=== PATIENT | male | born 1985 | race Hispanic/Latino ===

== ENCOUNTER 2018-10-10 21:01 | Emergency (ER) | payer SELFPAY ==
[2018-10-10 22:44] LABS: BASOPHILS % (AUTO) 0.9 % (0.0-5.0); HEMATOCRIT 45.9 % (42-54); LYMPHOCYTES % (AUTO) 44.6 % (21.0-51.0); MEAN CORPUSCULAR HEMOGLOBIN 30.6 pg (27.0-33.0); MEAN CORPUSCULAR HGB CONC 34.4 g/dL (32.0-36.0); MEAN CORPUSCULAR VOLUME 89.2 fL (79-99); MONOCYTES % (AUTO) 9.5 % (3.0-13.0); NUCLEATED RED BLOOD CELLS 0.1 % (0.0-0.19); PLATELET COUNT (AUTO) 187 K/uL (130-400); RED BLOOD CELL COUNT(AUTO) 5.15 MIL/uL (4.50-6.20); RED CELL DISTRIBUTION WIDTH 13.8 % (11.0-15.5)
[2018-10-10 22:57] LABS: CREATININE 0.9 mg/dL (0.5-1.5); POTASSIUM 3.9 mmol/L (3.5-5.1)
[2018-10-10 23:04] LABS: ALBUMIN 3.9 g/dL (3.5-5.0); BILIRUBIN,TOTAL 0.3 mg/dL (0.2-1.0); TOTAL PROTEIN, SERUM 7.8 g/dL (6.0-8.3)
== END 2018-10-10 23:32 | disposition home or self-care (01) ==
LOC: EDH 21:01
DX: J20.9 Acute bronchitis, unspecified (principal)
CPT/HCPCS: 36415; 71046; 80053; 85025

== ENCOUNTER 2019-04-07 11:29 | Emergency (ER) | payer OTHER ==
[2019-04-07] MEDS ORDERED: DIAZEPAM 5 MG TABLET ONE (12:36)
[2019-04-07] MEDS ORDERED: KETOROLAC TROMETHAMINE 60 MG/2 ML VIAL ONE (12:36)
== END 2019-04-07 14:13 | disposition home or self-care (01) ==
LOC: EDH 11:29
DX: M54.6 Pain in thoracic spine (principal); M62.830 Muscle spasm of back
CPT/HCPCS: 96372; 99283; J1885

== ENCOUNTER 2020-02-11 23:24 | Inpatient (IN) | payer SELFPAY ==
[~2020-02-11] VITALS: Ht 180.3 cm; Wt 97.5 kg
[2020-02-11] MEDS ORDERED: NITROGLYCERIN 1GM/1 INCH PACKET TD ONE (23:31)
[2020-02-11] MEDS ORDERED: ASPIRIN 325 MG TABLET ONE (23:31)
[2020-02-11 23:38] LABS: BASOPHILS % (AUTO) 0.8 % (0.0-5.0); EOSINOPHILS % (AUTO) 0.6 % (0.0-8.0); HEMATOCRIT 44.8 % (42-54); LYMPHOCYTES % (AUTO) 31.5 % (21.0-51.0); MEAN CORPUSCULAR HEMOGLOBIN 30.2 pg (27.0-33.0); MEAN CORPUSCULAR HGB CONC 34.4 g/dL (32.0-36.0); MEAN CORPUSCULAR VOLUME 87.8 fL (79-99); MONOCYTES % (AUTO) 8.8 % (3.0-13.0); NEUTROPHILS % (AUTO) 58.1 % (40.0-77.0); PLATELET COUNT (AUTO) 263 K/uL (130-400); RED CELL DISTRIBUTION WIDTH 13.1 % (11.0-15.5); WHITE BLOOD COUNT (AUTO) 12.2 K/uL (4.8-10.8)
[2020-02-11 23:47] LABS: CREATININE 1.3 mg/dL (0.5-1.5); POTASSIUM 4.1 mmol/L (3.5-5.1)
[2020-02-11 23:52] LABS: BILIRUBIN,TOTAL 0.3 mg/dL (0.2-1.0); TOTAL PROTEIN, SERUM 7.8 g/dL (6.0-8.3)
[2020-02-11 23:58] LABS: APPEARANCE,URINE Clear (CLEAR); BILIRUBIN,URINE Negative (NEGATIVE); COLOR,URINE Yellow (YELLOW); GLUCOSE, URINE (UA) Negative (NEGATIVE); KETONES,URINE Trace mg/dL (NEGATIVE); LEUKOCYTE ESTERASE ,URINE Small (NEGATIVE); NITRATE,URINE Negative (NEGATIVE); OCCULT BLOOD,URINE Negative (NEGATIVE); PROTEIN,URINE Negative (NEGATIVE)
[2020-02-12 00:05] LABS: BACTERIA,URINE None Seen /HPF (None Seen); MUCUS,URINE Few LPF (None Seen); RBC,URINE 0-1 /HPF (0-1); SQUAMOUS EPITHELIAL CELL,UR Rare /HPF (0-2)
[2020-02-12 00:06] LABS: B-TYPE NATRIURETIC PEPTIDE 15 pg/mL (0-100)
[2020-02-12 00:07] LABS: AMPHET/METH SCREEN,URINE NEGATIVE (NEGATIVE); BARBITURATE SCREEN, URINE NEGATIVE (NEGATIVE); BENZODIAZEPINES SCREEN,URINE NEGATIVE (NEGATIVE); CANNABINOID SCREEN,URINE NEGATIVE (NEGATIVE); COCAINE SCREEN,URINE NEGATIVE (NEGATIVE); OPIATE SCREEN,URINE NEGATIVE (NEGATIVE); PHENCYCLIDINE SCREEN,URINE NEGATIVE (NEGATIVE)
[2020-02-12] MEDS ORDERED: ONDANSETRON HCL 4 MG/2 ML VIAL IV PRN (02:45)
[2020-02-12 04:41] LABS: HEMOGLOBIN A1C 5.5 % (4.0-6.0)
[2020-02-12 04:55] LABS: THYROID STIMULATING HORMONE 3.65 uIU/mL (0.36-3.74)
[2020-02-12] MEDS ORDERED: GADODIAMIDE 10 MMOL/20 ML VIAL IV ONE (08:52)
[2020-02-12] MEDS ORDERED: AMLODIPINE BESYLATE 5 MG TAB PO SCH (09:00)
[2020-02-12] MEDS: ENOXAPARIN SODIUM 40 MG/0.4 ML SYRINGE SQ SCH (09:00)
[2020-02-12] MEDS ORDERED: ENOXAPARIN SODIUM 40 MG/0.4 ML SYRINGE SQ ONE (09:22)
--- NOTE | 2020-02-12 12:35 | NUR ---
DC Plan Prior to admission, patient independently performed ADLs. Now admitted with subacute ischemic stroke with LLE drift on tele-neuro assessment. Patient c/o weakness to the left side. Lives . Denies an HH, DME, or provider services. DCP is to home with . CD Addendum: 02/13/20 at 1015 by AXEL MINAYA CM Amended: Links added.
[2020-02-13] MEDS ORDERED: ENOXAPARIN SODIUM 40 MG/0.4 ML SYRINGE SQ ONE (08:18)
[2020-02-13] MEDS: LISINOPRIL 10 MG TABLET PO SCH ×2 (09:00→16:13)
[2020-02-13] MEDS: ENOXAPARIN SODIUM 40 MG/0.4 ML SYRINGE SQ SCH (09:00)
[2020-02-13 09:36] LABS: BASOPHILS % (AUTO) 0.9 % (0.0-5.0); EOSINOPHILS % (AUTO) 0.8 % (0.0-8.0); HEMATOCRIT 46.7 % (42-54); LYMPHOCYTES % (AUTO) 28.7 % (21.0-51.0); MEAN CORPUSCULAR HEMOGLOBIN 29.5 pg (27.0-33.0); MEAN CORPUSCULAR HGB CONC 33.4 g/dL (32.0-36.0); MEAN CORPUSCULAR VOLUME 88.4 fL (79-99); MONOCYTES % (AUTO) 9.5 % (3.0-13.0); PLATELET COUNT (AUTO) 251 K/uL (130-400); RED BLOOD CELL COUNT(AUTO) 5.28 MIL/uL (4.50-6.20); RED CELL DISTRIBUTION WIDTH 13.1 % (11.0-15.5); WHITE BLOOD COUNT (AUTO) 8.9 K/uL (4.8-10.8)
[2020-02-13 09:51] LABS: CREATININE 1.1 mg/dL (0.5-1.5)
[2020-02-13 12:00] VITALS: BP 127/71
[2020-02-13] MEDS ORDERED: IOHEXOL-350 75 ML VIAL IV ONE (12:50)
--- NOTE | 2020-02-13 14:00 | NUR ---
REPORT RECEIVED, CARE CONTINUED. ASSESSMENT DONE ,WEAKNESS NOTED TO LT ARM AND LEG BUT IS MILD AND ABLE TO GET AROUND WITH NO PROBLEM. NS AT STARTED AT 50 ML/HR.
[2020-02-13 16:00] VITALS: BP 119/72
[2020-02-13] MEDS: ASPIRIN 81MG TAB.CHEW PO SCH (16:13)
[2020-02-13] MEDS: SODIUM CHLORIDE 0.9% 1000ML 1,000 ML IV SCH (16:14)
[2020-02-13] MEDS: ATORVASTATIN CALCIUM 20 MG TABLET PO SCH (21:58)
[2020-02-13 22:03] VITALS: BP 131/76
[2020-02-14 00:54] VITALS: BP 134/83
[2020-02-14 04:31] VITALS: BP 101/53
[2020-02-14] MEDS: SODIUM CHLORIDE 0.9% 1000ML 1,000 ML IV SCH (07:37)
[2020-02-14] MEDS: LISINOPRIL 10 MG TABLET PO SCH (07:37)
[2020-02-14] MEDS: ASPIRIN 81MG TAB.CHEW PO SCH (07:37)
[2020-02-14] MEDS: ENOXAPARIN SODIUM 40 MG/0.4 ML SYRINGE SQ SCH (07:38)
[2020-02-14 08:00] VITALS: BP 131/79
[2020-02-14 11:28] VITALS: BP 110/66
--- NOTE | 2020-02-14 12:48 | NUR ---
Pt W LUE AND LLE WEAKNESS. DENIES PAIN. NUMBNESS REPORTED HOWEVER SENSATION INTACT TO LUE LLE. NO FACIAL WEAKNESS NOTED, DENIES SWALLOWING ISSUES. ROM FULL BUT SLOW. LUE 3+ GROSSLY LLE 2 NO RESISTANCE, NO FOOT DROP NOTED, BUT GAIT UNSTAEDY, KNEE DARY. WILL NEED CANE OR WALKER AT THIS TIME. WALKER GIVEN INROOM. PT NON COMPLIANT WITH CALLING FOR HELP AND HAS BEEN AMBULATING IN ROOM. INSTRUCTED TO CALL FOR HELP, LEFT WALKER, INSTRUCTED IN HEP. Addendum: 02/14/20 at 1250 by KAVITA BURNS PT PT Amended: Links added.
[2020-02-14 16:00] VITALS: BP 118/71
[2020-02-14] MEDS: ATORVASTATIN CALCIUM 20 MG TABLET PO SCH (21:11)
[2020-02-14 21:22] VITALS: BP 120/71
[2020-02-15 00:08] VITALS: BP 142/74
[2020-02-15 04:10] VITALS: BP 132/73
[2020-02-15] MEDS: LISINOPRIL 10 MG TABLET PO SCH (07:18)
[2020-02-15] MEDS: ASPIRIN 81MG TAB.CHEW PO SCH (07:18)
[2020-02-15] MEDS: ENOXAPARIN SODIUM 40 MG/0.4 ML SYRINGE SQ SCH (07:19)
[2020-02-15 08:00] VITALS: BP 113/74
--- NOTE | 2020-02-15 08:00 | NUR ---
ASSESSMENT PT IS AAOX3 DENIES CP DENIES SOB DENIES NV. NOTED LEFT UPPER EXT WEAKNESS WHEN COMPARED TO RIGHT UPPER EXT. BILATERAL LOWER EXT ARE STRONG. NO SLURRED SPEECH NO FACIAL DROOP NOTED, PT DENIES HEADACHES AND DENIES SEEING VISUAL DISTURBANCES. SITTING UPRIGHT IN BED, CALL LIGHT WITHIN REACH. TOLERATED BREAKFAST.
[2020-02-15 12:00] VITALS: BP 118/68
--- NOTE | 2020-02-15 12:38 | NUR ---
UP WITH PHYSICAL THERAPY
[2020-02-15 15:40] VITALS: BP 125/75
[2020-02-15] MEDS ORDERED: FAMOTIDINE 20MG TAB 20 MG TAB ONE (19:11)
[2020-02-15] MEDS: ATORVASTATIN CALCIUM 20 MG TABLET PO SCH (20:03)
[2020-02-15] MEDS: FAMOTIDINE 20MG TAB 20 MG TAB PO SCH (20:03)
[2020-02-15] MEDS: ACETAMINOPHEN 325 MG TAB PO PRN (20:09)
[2020-02-15 21:03] VITALS: BP 122/69
[2020-02-16] VITALS (8 sets, daily range): BP systolic 117–132; BP diastolic 58–85
[2020-02-16 05:53] LABS: BASOPHILS % (AUTO) 0.9 % (0.0-5.0); EOSINOPHILS % (AUTO) 1.5 % (0.0-8.0); HEMATOCRIT 47.9 % (42-54); LYMPHOCYTES % (AUTO) 35.5 % (21.0-51.0); MEAN CORPUSCULAR HEMOGLOBIN 30.2 pg (27.0-33.0); MEAN CORPUSCULAR HGB CONC 33.8 g/dL (32.0-36.0); MEAN CORPUSCULAR VOLUME 89.2 fL (79-99); NEUTROPHILS % (AUTO) 51.8 % (40.0-77.0); PLATELET COUNT (AUTO) 275 K/uL (130-400); RED BLOOD CELL COUNT(AUTO) 5.37 MIL/uL (4.50-6.20); RED CELL DISTRIBUTION WIDTH 12.8 % (11.0-15.5); WHITE BLOOD COUNT (AUTO) 7.9 K/uL (4.8-10.8)
[2020-02-16 06:27] LABS: CREATININE 1.1 mg/dL (0.5-1.5)
[2020-02-16] MEDS: ENOXAPARIN SODIUM 40 MG/0.4 ML SYRINGE SQ SCH (08:27)
[2020-02-16] MEDS: LISINOPRIL 10 MG TABLET PO SCH (08:27)
[2020-02-16] MEDS: FAMOTIDINE 20MG TAB 20 MG TAB PO SCH ×2 (08:27→20:09)
[2020-02-16] MEDS: ASPIRIN 81MG TAB.CHEW PO SCH (08:27)
[2020-02-16] MEDS: ACETAMINOPHEN 325 MG TAB PO PRN ×2 (13:49→20:10)
--- NOTE | 2020-02-16 17:17 | NUR ---
TRANSFER REPORT GIVEN TO JOO BARBER. PT TO BE TRANSFERRED TO RM 312.
--- NOTE | 2020-02-16 17:25 | NUR ---
TRANSFER PT TRANSFERRED TO 312 VIA WC BY ASHLEY HAJI.
--- NOTE | 2020-02-16 17:35 | NUR ---
PATIENT TRANSFERRED FROM ROOM 417. PATIENT AT THIS TIME AAOX4, DENIES ANY PAIN. REPORTS LEFT SIDE WEAKNESS CONTINUES. NO OTHER COMPLAINTS. WILL CONTINUE TO MONITOR
[2020-02-16] MEDS: ATORVASTATIN CALCIUM 20 MG TABLET PO SCH (20:10)
[2020-02-16] MEDS: GABAPENTIN 100 MG CAPSULE PO SCH (21:10)
[2020-02-17 03:49] VITALS: BP 114/72
[2020-02-17 04:00] LABS: EOSINOPHILS % (AUTO) 1.2 % (0.0-8.0); HEMATOCRIT 48.5 % (42-54); LYMPHOCYTES % (AUTO) 35.6 % (21.0-51.0); MEAN CORPUSCULAR HEMOGLOBIN 29.7 pg (27.0-33.0); MEAN CORPUSCULAR VOLUME 87.4 fL (79-99); MONOCYTES % (AUTO) 9.4 % (3.0-13.0); NEUTROPHILS % (AUTO) 52.7 % (40.0-77.0); PLATELET COUNT (AUTO) 285 K/uL (130-400); RED BLOOD CELL COUNT(AUTO) 5.55 MIL/uL (4.50-6.20); RED CELL DISTRIBUTION WIDTH 12.6 % (11.0-15.5); WHITE BLOOD COUNT (AUTO) 9.1 K/uL (4.8-10.8)
[2020-02-17 04:26] LABS: BILIRUBIN,TOTAL 0.5 mg/dL (0.2-1.0); POTASSIUM 3.8 mmol/L (3.5-5.1); TOTAL PROTEIN, SERUM 8.2 g/dL (6.0-8.3)
[2020-02-17] MEDS: GABAPENTIN 100 MG CAPSULE PO SCH ×3 (05:45→21:00)
[2020-02-17 07:51] VITALS: BP 120/67
[2020-02-17] MEDS: FAMOTIDINE 20MG TAB 20 MG TAB PO SCH ×2 (10:11→21:00)
[2020-02-17] MEDS: ASPIRIN 81MG TAB.CHEW PO SCH (10:11)
[2020-02-17] MEDS: LISINOPRIL 10 MG TABLET PO SCH (10:12)
[2020-02-17] MEDS: ENOXAPARIN SODIUM 40 MG/0.4 ML SYRINGE SQ SCH (10:13)
[2020-02-17 11:35] VITALS: BP 126/74
[2020-02-17 16:51] VITALS: BP 125/73
[2020-02-17 20:30] VITALS: BP 127/72
[2020-02-17] MEDS: ATORVASTATIN CALCIUM 20 MG TABLET PO SCH (21:00)
[2020-02-18 00:01] VITALS: BP 134/78
[2020-02-18 03:53] VITALS: BP 126/80
[2020-02-18] MEDS: GABAPENTIN 100 MG CAPSULE PO SCH ×2 (06:28→13:22)
[2020-02-18 08:00] VITALS: BP 130/73
[2020-02-18] MEDS: ENOXAPARIN SODIUM 40 MG/0.4 ML SYRINGE SQ SCH (09:00)
[2020-02-18] MEDS: ASPIRIN 81MG TAB.CHEW PO SCH (09:56)
[2020-02-18] MEDS: FAMOTIDINE 20MG TAB 20 MG TAB PO SCH (09:56)
[2020-02-18] MEDS: LISINOPRIL 10 MG TABLET PO SCH (09:56)
[2020-02-18 12:00] VITALS: BP 125/90
[2020-02-18] MEDS ORDERED: ACET-2247 PO (15:50)
[2020-02-18] MEDS ORDERED: GABA100C PO (15:56)
[2020-02-18] MEDS ORDERED: FAMO20TA8 PO (15:56)
[2020-02-18] MEDS ORDERED: ATOR20TA65 PO (15:56)
[2020-02-18] MEDS ORDERED: ASPI-1005 PO (15:56)
[2020-02-18] MEDS ORDERED: LISI10TA7 PO (15:57)
== END 2020-02-18 18:00 | disposition home or self-care (01) | DRG 65 ==
LOC: EDH 23:24 → EDHIP 23:25 → OBSVTOIN 23:25 → 4DH 02-13 11:57 → 3BH 02-16 17:30
PROVIDERS: ADMIT Internal Medicine; ATTEND Internal Medicine
DX: I63.9 Cerebral infarction, unspecified (principal); G81.94 Hemiplegia, unspecified affecting left nondominant side; I10 Essential (primary) hypertension; E78.00 Pure hypercholesterolemia, unspecified; E78.1 Pure hyperglyceridemia; E78.5 Hyperlipidemia, unspecified; F17.210 Nicotine dependence, cigarettes, uncomplicated; I73.9 Peripheral vascular disease, unspecified; Z82.49 Family history of ischemic heart disease and other diseases of the circulatory system
CPT/HCPCS: 36415; 70450; 70496; 70498; 70553; 71045; 72125; 73030; 80048; 80053; 80061; 80305; 81001; 82550; 82948; 83036; 83690; 83880; 84443; 84484; 85025; 93005; 93306; 93356; 93880; 97039; A9579; G0378; J1650; Q9967

== ENCOUNTER 2020-02-29 19:52 | Inpatient (IN) | payer SELFPAY ==
[~2020-02-29] VITALS: Ht 180.3 cm; Wt 97.5 kg
[~2020-02-29 19:52] MED LIST: ASPI-1005 PO; ATOR20TA65 PO; FAMO20TA8 PO; GABA100C PO; LISI10TA7 PO
[2020-02-29] MEDS ORDERED: NITROGLYCERIN 0.4 MG SL TAB SL ONE (20:03)
[2020-02-29 20:26] LABS: BASOPHILS % (AUTO) 0.8 % (0.0-5.0); EOSINOPHILS % (AUTO) 0.7 % (0.0-8.0); HEMATOCRIT 49.2 % (42-54); LYMPHOCYTES % (AUTO) 39.8 % (21.0-51.0); MEAN CORPUSCULAR HEMOGLOBIN 30.1 pg (27.0-33.0); MEAN CORPUSCULAR HGB CONC 34.1 g/dL (32.0-36.0); MEAN CORPUSCULAR VOLUME 88.2 fL (79-99); MONOCYTES % (AUTO) 9.6 % (3.0-13.0); PLATELET COUNT (AUTO) 324 K/uL (130-400); RED BLOOD CELL COUNT(AUTO) 5.58 MIL/uL (4.50-6.20); RED CELL DISTRIBUTION WIDTH 12.3 % (11.0-15.5); WHITE BLOOD COUNT (AUTO) 11.8 K/uL (4.8-10.8)
[2020-02-29 20:35] LABS: CREATININE 1.2 mg/dL (0.5-1.5); POTASSIUM 3.9 mmol/L (3.5-5.1)
[2020-02-29 20:40] LABS: ALBUMIN 4.6 g/dL (3.5-5.0); BILIRUBIN,TOTAL 0.3 mg/dL (0.2-1.0); TOTAL PROTEIN, SERUM 8.7 g/dL (6.0-8.3)
[2020-02-29 20:55] LABS: INR 0.88 (0.85-1.15); PROTHROMBIN TIME 9.6 SEC (9.6-11.6)
[2020-02-29] MEDS ORDERED: ACETAMINOPHEN 325 MG TAB PO PRN (21:45)
[2020-02-29] MEDS ORDERED: MORPHINE SULFATE 2 MG/ML 1ML SYG IVP PRN (21:45)
[2020-02-29] MEDS ORDERED: ONDANSETRON ODT 4 MG TAB PO PRN (21:45)
[2020-03-01 05:10] LABS: BASOPHILS % (AUTO) 0.9 % (0.0-5.0); EOSINOPHILS % (AUTO) 1.2 % (0.0-8.0); HEMATOCRIT 47.9 % (42-54); LYMPHOCYTES % (AUTO) 47.1 % (21.0-51.0); MEAN CORPUSCULAR HEMOGLOBIN 30.3 pg (27.0-33.0); MEAN CORPUSCULAR HGB CONC 34.2 g/dL (32.0-36.0); MEAN CORPUSCULAR VOLUME 88.5 fL (79-99); MONOCYTES % (AUTO) 8.7 % (3.0-13.0); NEUTROPHILS % (AUTO) 41.9 % (40.0-77.0); PLATELET COUNT (AUTO) 299 K/uL (130-400); RED BLOOD CELL COUNT(AUTO) 5.41 MIL/uL (4.50-6.20); RED CELL DISTRIBUTION WIDTH 12.6 % (11.0-15.5)
[2020-03-01 05:43] LABS: CARBON DIOXIDE 27 mmol/L (21-32); CHLORIDE 102 mmol/L (101-111); CHOLESTEROL 162 mg/dL (<200); CREATINE KINASE, TOTAL 65 U/L (21-232); CREATININE 1.1 mg/dL (0.5-1.5); GLOMERULAR FILTR. RATE CALC 82 mL/min (>60); GLUCOSE,RANDOM 88 mg/dL (70-105); HDL CHOLESTEROL 35 mg/dL (29-71); LDL DIRECT 101 mg/dL (0-99); MYOGLOBIN 33 ng/mL (10-92); POTASSIUM 3.8 mmol/L (3.5-5.1); SODIUM SERUM 139 mmol/L (136-145); TRIGLYCERIDES 143 mg/dL (30-200); TROPONIN I < 0.04 ng/mL (0.00-0.06); UREA NITROGEN, BLOOD 18 mg/dL (7-18)
[2020-03-01 06:11] LABS: HEMOGLOBIN A1C 5.5 % (4.0-6.0)
[2020-03-01] MEDS: ASPIRIN 81 MG EC TAB PO SCH (09:00)
[2020-03-01] MEDS: ENOXAPARIN SODIUM 40 MG/0.4 ML SYRINGE SQ SCH (09:00)
[2020-03-01] MEDS ORDERED: ENOXAPARIN SODIUM 40 MG/0.4 ML SYRINGE SQ ONE (09:42)
[2020-03-01] MEDS ORDERED: ASPIRIN 81MG TAB.CHEW ONE (09:42)
--- NOTE | 2020-03-01 14:15 | NUR ---
RUSTAM NOTE/IA UNABLE TO MEET WITH PATIENT IN ROOM, NEXT OF KIN CALLED, KLARISSA ARELI. PER SPOUSE, PATIENT LIVES WITH HER AND CHILDREN, IS SEMI INDEPENDENT, HAS USE OF WALKER, NO PROVIDER OR HOME HEALTH AND FEELS SAFE FOR PATIENT TO RETURN HOME ONCE DISCHARGED FROM HOSPITAL. Addendum: 03/01/20 at 1418 by TRENT OVIEDO RN CM Amended: Links added.
[2020-03-01 17:55] VITALS: BP 122/90
--- NOTE | 2020-03-01 21:00 | NUR ---
FAMILY Pt states his next of kin is his mom Luci Gandara.not his .He said they're .
[2020-03-01 21:10] VITALS: BP 124/76
[2020-03-02 00:29] VITALS: BP 130/86
[2020-03-02 04:21] VITALS: BP 125/83
[2020-03-02] MEDS: ASPIRIN 81 MG EC TAB PO SCH (07:27)
[2020-03-02] MEDS: ENOXAPARIN SODIUM 40 MG/0.4 ML SYRINGE SQ SCH (07:27)
--- NOTE | 2020-03-02 08:00 | NUR ---
PT AAO X 3 REVIEW PLAN OF CARE. DENIES ANY PAIN .WEAKNESS TO HIS LT SIDE NOTED . RIGHT SIDE ,GOOD, NOTED NO DEFICIT TO HIS FACE, DENIES ANY HEADACHE . CALL LIGHT IN REACH..
[2020-03-02 08:41] VITALS: BP 111/82
[2020-03-02 11:44] VITALS: BP 119/86
--- NOTE | 2020-03-02 13:20 | NUR ---
DISCHARGE HOME, SUMMARY WAS REVIEW. DENIES ANY PAIN. OR FAINTING. . PT TO FOLLOW WITH ANDREIA TURCIOS DR. FOR CONT CARE. SL TO HIS RT HAND WAS DC ,WITH NO HEMATOMA NOTED.
== END 2020-03-02 14:20 | disposition home or self-care (01) | DRG 313 ==
LOC: EDH 19:52 → EDHIP 19:53 → 3DH 03-01 17:57
PROVIDERS: ADMIT Internal Medicine Infectious Disease; ATTEND Internal Medicine Infectious Disease
DX: R07.89 Other chest pain (principal); I10 Essential (primary) hypertension; E66.9 Obesity, unspecified; Z86.73 Personal history of transient ischemic attack (TIA), and cerebral infarction without residual deficits; Z91.19 Patient's noncompliance with other medical treatment and regimen; Z68.30 Body mass index [BMI] 30.0-30.9, adult
CPT/HCPCS: 36415; 70450; 71045; 80048; 80053; 80061; 82550; 83036; 83735; 83874; 84484; 85025; 85610; 85730; 93005; G0378; J1650

== ENCOUNTER 2020-10-27 18:22 | Emergency (ER) | payer OTHER ==
[~2020-10-27 18:22] MED LIST changes: -FAMO20TA8 PO; +LISI10TA24 PO; -LISI10TA7 PO
[2020-10-27 18:51] LABS: BASOPHILS % (AUTO) 0.2 % (0.0-5.0); EOSINOPHILS % (AUTO) 1.8 % (0.0-8.0); HEMATOCRIT 46.1 % (42-54); LYMPHOCYTES % (AUTO) 36.1 % (21.0-51.0); MEAN CORPUSCULAR HEMOGLOBIN 29.9 pg (27.0-33.0); MEAN CORPUSCULAR HGB CONC 34.3 g/dL (32.0-36.0); MEAN CORPUSCULAR VOLUME 87.3 fL (79-99); MONOCYTES % (AUTO) 10.4 % (3.0-13.0); NEUTROPHILS % (AUTO) 51.3 % (40.0-77.0); PLATELET COUNT (AUTO) 140 K/uL (130-400); RED BLOOD CELL COUNT(AUTO) 5.28 MIL/uL (4.50-6.20); RED CELL DISTRIBUTION WIDTH 13.1 % (11.0-15.5); WHITE BLOOD COUNT (AUTO) 6.3 K/uL (4.8-10.8)
[2020-10-27 19:09] LABS: CREATININE 1.2 mg/dL (0.5-1.5); POTASSIUM 3.2 mmol/L (3.5-5.1)
[2020-10-27 19:14] LABS: ALBUMIN 3.6 g/dL (3.5-5.0); BILIRUBIN,TOTAL 0.3 mg/dL (0.2-1.0); TOTAL PROTEIN, SERUM 7.4 g/dL (6.0-8.3)
[2020-10-27] MEDS ORDERED: POTASSIUM CHLORIDE 20 MEQ ERTAB PO ONE (20:52)
[2020-10-27] MEDS ORDERED: DEXAMETHASONE SOD PHOSPHATE 10MG/ML 1ML VIAL ONE (20:52)
== END 2020-10-27 21:39 | disposition home or self-care (01) ==
LOC: EDH 18:22
DX: U07.1 COVID-19 (principal); J12.82 Pneumonia due to coronavirus disease 2019; I10 Essential (primary) hypertension; Z72.0 Tobacco use
CPT/HCPCS: 36415; 71045; 80053; 82550; 84145; 84484; 85025; 85651; 87426; 93005; 96374; 99285; J1100

== ENCOUNTER 2024-09-24 02:57 | Emergency (ER) | payer BC ==
[~2024-09-24] VITALS: Ht 180.3 cm; Wt 106.6 kg
--- NOTE | 2024-09-24 03:51 | ERN ---
General Chief Complaint: Rectal Bleed Stated Complaint: C/O RECTAL BLEEDING WITH ABD PAIN Time Seen by MD: 03:11 Source: patient History of Present Illness Initial Comments Inch 38-year-old male who is otherwise healthy noticed bright red blood in his toilet bowl and on his toilet paper. He had this approximately two months ago and it was stopped. He does not have nausea vomiting diarrhea. He was also started to feeling a little more tired recently. Patient has a no heartburn no hematemesis. Whenever he has a bowel movement he does feel like the he completely emptied his rectum. Certainly past medical history has a cardiac ablation for atrial fibrillation. He had a stroke in 2019 because of the atrial fibrillation and he has recovered from all of his stroke symptoms. States that he was not on any blood thinners although I have noticed that he does take aspirin. Timing/Duration: 1 week Allergies: Coded Allergies: No Known Drug Allergies (Verified Allergy, Unknown, 02/12/20) Home Meds Active Scripts Lisinopril (Lisinopril) 10 Mg Tablet, 10 MG PO DAILY for 60 Days, #60 TAB Prov:KENNEDY GRIDER CRNA 02/18/20 Gabapentin (Neurontin) 100 Mg Capsule, 100 MG PO Q8H6 for 30 Days, #90 CAP Prov:KENNEDY GRIDER CRNA 02/18/20 Atorvastatin Calcium (Atorvastatin Calcium) 20 Mg Tablet, 20 MG PO HS for 60 Days, #60 TAB Prov:KENNEDY GRIDER CRNA 02/18/20 Aspirin (ASPIRIN 81MG CHEW TAB) 81 Mg Tab.chew, 81 MG PO DAILY for 60 Days, TAB.CHEW Prov:KENNEDY GRIDER CRNA 02/18/20 Past Medical History Past Medical History: Hypertension Past Surgical History: Other Surgical History Other: CARDIAC ABLATION for a-fib. Stroke ROS Dictation He was systems negative no chest pain no shortness a breath no mental status changes no fevers no chills no abdominal pain no blood in his urine no difficulty voiding no difficulty having bowel movements Review of Systems: was completed, & the rest were negative. Results Laboratory and Microbiology Lab and Micro Result Laboratory Tests Test 09/24/24 04:06 09/24/24 04:26 White Blood Count 13.8 K/uL (4.8-10.8) H Red Blood Count 5.25 MIL/uL (4.50-6.20) Hemoglobin 15.8 g/dL (14.0-18.0) Hematocrit 46.4 % (42-54) Mean Corpuscular Volume 88.4 fL (79-99) Mean Corpuscular Hemoglobin 30.1 pg (27.0-33.0) Mean Corpuscular Hemoglobin Concent 34.1 g/dL (32.0-36.0) Red Cell Distribution Width 13.4 % (11.0-15.5) Platelet Count 263 K/uL (130-400) Mean Platelet Volume 9.6 fL (7.5-10.5) Immature Granulocyte % (Auto) 0.3 % (0-1) Neutrophils (%) (Auto) 66.8 % (40.0-77.0) Lymphocytes (%) (Auto) 23.6 % (21.0-51.0) Monocytes (%) (Auto) 8.6 % (3.0-13.0) Eosinophils (%) (Auto) 0.1 % (0.0-8.0) Basophils (%) (Auto) 0.6 % (0.0-5.0) Neutrophils # (Auto) 9.2 K/uL (1.8-7.7) H Lymphocytes # (Auto) 3.3 K/uL (1.0-4.8) Monocytes # (Auto) 1.2 K/uL (0.1-1.0) H Eosinophils # (Auto) 0.02 K/uL (0.00-0.70) Basophils # (Auto) 0.08 K/uL (0.00-0.20) Absolute Immature Granulocyte (auto 0.04 K/uL (0-1) Nucleated Red Blood Cells 0.0 % (0.0-0.19) Sodium Level 136 mmol/L (136-145) Potassium Level 3.6 mmol/L (3.5-5.1) Chloride Level 100 mmol/L (101-111) L Carbon Dioxide Level 31 mmol/L (21-32) Blood Urea Nitrogen 14 mg/dL (7-18) Creatinine 1.1 mg/dL (0.5-1.3) Glomerular Filtration Rate Calc 89 mL/min (>90) Random Glucose 93 mg/dL (70-105) Total Calcium 9.3 mg/dL (8.5-10.1) Serum Alcohol < 3 mg/dL (0-10) Urine Color YELLOW (YELLOW) Urine Appearance CLOUDY (CLEAR) H Urine pH 5.5 (5.0-8.0) Urine Specific [place] 1.033 (1.001-1.031) Urine Protein 20 mg/dL (NEGATIVE) H Urine Glucose (UA) NEGATIVE mg/dL (NEGATIVE) Urine Ketones NEGATIVE mg/dL (NEGATIVE) Urine Occult Blood NEGATIVE (NEGATIVE) Urine Nitrate NEGATIVE (NEGATIVE) Urine Bilirubin NEGATIVE mg/dL (NEGATIVE) Urine Urobilinogen 0.2 mg/dL (0.2-1.0) Urine Leukocyte Esterase NEGATIVE Sami/uL Urine RBC 0-1 /HPF (0-1) Urine WBC None /HPF (0-1) Urine Amorphous Crystals (Auto) RARE /LPF (None Seen) Urine Bacteria RARE /HPF (None Seen) Urine Opiates Screen NEGATIVE (NEGATIVE) Urine Barbiturates Screen NEGATIVE (NEGATIVE) Urine Phencyclidine Screen NEGATIVE (NEGATIVE) Urine Amphetamines Screen NEGATIVE (NEGATIVE) Urine Benzodiazepines Screen POSITIVE (NEGATIVE) H Urine Cocaine Screen POSITIVE (NEGATIVE) H Urine Marijuana (THC) Screen NEGATIVE (NEGATIVE) MDM Patient's complaint of bright red blood per rectum could be due to hemorrhoids or a arteriovenous malformation or possibly a mass. I will order a CBC to make sure patient was not getting anemic standard chemistry panel and a CT with IV contrast. Rectal exam is still pending. ED Course Orders Procedure Category Date Status Time Cbc With Differential LAB 09/24/24 Complete 04:02 Ct Abdomen/Pelvis W/O CT 09/24/24 Taken Contrast 04:02 Urinalysis Profile LAB 09/24/24 Complete 04:02 Basic Metabolic Panel LAB 09/24/24 Complete 04:50 Alcohol, Blood LAB 09/24/24 Complete 04:50 Drug Screen Urine LAB 09/24/24 Complete 04:50 Vital Signs Date Time Temp Pulse Resp B/P (MAP) Pulse Ox O2 Delivery O2 Flow Rate FiO2 09/24/24 03:56 97.5 101 16 142/101 97 Room Air* 0 21 09/24/24 03:01 97.3 116 20 151/101 96 Room Air DX & DISP Disposition: Discharge Departure Impression: Primary Impression: Rectal bleeding Condition: Stable Additional Instructions: Follow up with night filler for referral to GI MD or surgery for hemmorhoidal bleeding or AVM. If you become dizzy and lightheaded from blood loss come to ED. Referrals: KEYON BURNHAM (PCP) JIAN CALIXTO MD Sep 24, 2024 03:51
[2024-09-24 03:56] VITALS: TEMP 97.6
[2024-09-24 04:20] LABS: BASOPHILS # (AUTO) 0.08 K/uL (0.00-0.20); BASOPHILS % (AUTO) 0.6 % (0.0-5.0); EOSINOPHILS # (AUTO) 0.02 K/uL (0.00-0.70); EOSINOPHILS % (AUTO) 0.1 % (0.0-8.0); HEMATOCRIT 46.4 % (42-54); IMMATURE GRANULOCYTE ABSOLUTE 0.04 K/uL (0-1); LYMPHOCYTES # (AUTO) 3.3 K/uL (1.0-4.8); LYMPHOCYTES % (AUTO) 23.6 % (21.0-51.0); MEAN CORPUSCULAR HEMOGLOBIN 30.1 pg (27.0-33.0); MEAN CORPUSCULAR HGB CONC 34.1 g/dL (32.0-36.0); MEAN CORPUSCULAR VOLUME 88.4 fL (79-99); MONOCYTES # (AUTO) 1.2 K/uL (0.1-1.0); MONOCYTES % (AUTO) 8.6 % (3.0-13.0); NEUTROPHILS # (AUTO) 9.2 K/uL (1.8-7.7); NEUTROPHILS % (AUTO) 66.8 % (40.0-77.0); PLATELET COUNT (AUTO) 263 K/uL (130-400); RED BLOOD CELL COUNT(AUTO) 5.25 MIL/uL (4.50-6.20); RED CELL DISTRIBUTION WIDTH 13.4 % (11.0-15.5); WHITE BLOOD COUNT (AUTO) 13.8 K/uL (4.8-10.8)
[2024-09-24 04:37] LABS: ADD UA MICROSCOPIC YES; APPEARANCE,URINE CLOUDY (CLEAR); BILIRUBIN,URINE NEGATIVE (NEGATIVE); COLOR,URINE YELLOW (YELLOW); GLUCOSE, URINE (UA) NEGATIVE (NEGATIVE); KETONES,URINE NEGATIVE (NEGATIVE); LEUKOCYTE ESTERASE ,URINE NEGATIVE Leu/uL (NEGATIVE); NITRATE,URINE NEGATIVE (NEGATIVE); OCCULT BLOOD,URINE NEGATIVE (NEGATIVE); PH,URINE 5.5 (5.0-8.0); PROTEIN,URINE 20 mg/dL (NEGATIVE); UROBILINOGEN,URINE 0.2 mg/dL (0.2-1.0)
[2024-09-24 04:40] LABS: BACTERIA,URINE RARE /HPF (None Seen); MUCUS,URINE RARE LPF (None Seen); RBC,URINE 0-1 /HPF (0-1)
[2024-09-24 05:01] LABS: CARBON DIOXIDE 31 mmol/L (21-32); CHLORIDE 100 mmol/L (101-111); CREATININE 1.1 mg/dL (0.5-1.3); GLOMERULAR FILTR. RATE CALC 89 mL/min (>90); GLUCOSE,RANDOM 93 mg/dL (70-105); POTASSIUM 3.6 mmol/L (3.5-5.1); SODIUM SERUM 136 mmol/L (136-145); UREA NITROGEN, BLOOD 14 mg/dL (7-18)
[2024-09-24 05:02] LABS: ALCOHOL, BLOOD < 3 mg/dL (0-10)
[2024-09-24 05:04] LABS: AMPHET/METH SCREEN,URINE NEGATIVE (NEGATIVE); BARBITURATE SCREEN, URINE NEGATIVE (NEGATIVE); BENZODIAZEPINES SCREEN,URINE POSITIVE (NEGATIVE); CANNABINOID SCREEN,URINE NEGATIVE (NEGATIVE); COCAINE SCREEN,URINE POSITIVE (NEGATIVE); OPIATE SCREEN,URINE NEGATIVE (NEGATIVE); PHENCYCLIDINE SCREEN,URINE NEGATIVE (NEGATIVE)
--- NOTE | 2024-09-24 05:36 | NUR ---
UPON INITIAL ASSESSMENT, PT SLOW TO RESPOND, UNABLE TO FORM COMPREHENSIVE SENTENCES. PT ALSO NOTED TO BE STUMBLING WHEN PT WAS TAKEN TO CT SCAN. URINE DRUG SCREEN RESULTED IN POSITIVE COCAINE AND BENZODIAZEPINES. PT IS READY TO BE DISCHARGED BUT ED MD AND STAFF NOT COMFORTABLE WITH DISCHARGING PT AND PT DRIVING HIS OWN VEHICLE. SPOKE TO PT'S , KLARISSA AND EXPLAINED THE SITUATION TO HER. PER PT'S , SHE WILL GET A FAMILY MEMBER TO COME DIRECTOR OF SOFTWARE DEVELOPMENT PT FROM ER.
[2024-09-24 06:21] VITALS: BP 138/91; PULSE 95; RESP 16; O2SAT 98
--- NOTE | 2024-09-24 08:40 | HMCIMG ---
CT ABDOMEN/PELVIS W/O CONTRAST HISTORY: Bright red blood per rectum COMPARISON: None TECHNIQUE: Multiple sequential axial images of the abdomen and pelvis were obtained from the dome of the diaphragm through symphysis pubis. Patient was not given contrast through intravenous route. Oral contrast was not given. FINDINGS: No pleural effusion is seen bilaterally. There is no evidence of parenchymal disease or pulmonary nodule of the visualized lower lungs. Degenerative changes of the thoracolumbar spine are present. The heart is not enlarged. The liver, spleen, adrenal glands and pancreas are unremarkable. There is no evidence of hydronephrosis bilaterally. No evidence of renal stone is seen. Fecal material is seen in the colon. There are normal size retroperitoneal and mesenteric lymph nodes. No ascites is seen. No CT evidence of acute appendicitis is seen. Clinical correlation is recommended. Pelvic sidewalls are symmetric bilaterally. Bladder is poorly distended. IMPRESSION: 1. No acute findings. CT was performed with one or more following dose reduction techniques: automated exposure control, adjustment of the mA and kv according to patient's size, or use of a iterative reconstruction technique.
== END 2024-09-24 07:05 | disposition home or self-care (01) ==
LOC: EDH 02:57
DX: K62.5 Hemorrhage of anus and rectum (principal); I10 Essential (primary) hypertension; I48.91 Unspecified atrial fibrillation; Z79.82 Long term (current) use of aspirin; Z79.899 Other long term (current) drug therapy; Z86.73 Personal history of transient ischemic attack (TIA), and cerebral infarction without residual deficits
CPT/HCPCS: 36415; 74176; 80048; 80305; 81001; 85025; 99284